=== PATIENT | male | born 1980 ===

== ENCOUNTER 2024-08-22 06:10 | Day surgery (SDC) | payer OTHER, SELFPAY ==
[2024-08-06 11:11] LABS: Hematocrit 41.1 % (39.0-52.0); Hemoglobin 14.7 g/dL (13.0-18.0); Mean Corp Hgb Conc. 35.8 g/dL (33.0-37.0); Mean Corpuscular Hgb 32.7 pg (27.0-31.0); Mean Corpuscular Volume 91.5 fL (80.0-94.0); Platelet Count 248 10^3/uL (130-400); Red Blood Cell Count 4.49 10^6/uL (4.70-6.10); Red Cell Dist. Width 11.9 % (11.5-14.5); White Blood Cell Count 6.1 10^3/uL (4.8-10.8)
[2024-08-06 11:58] LABS: ALT (SGPT) 53 U/L (0-50); AST (SGOT) 30 U/L (17-59); Albumin 4.8 g/dl (3.5-5.0); Alkaline Phosphatase 64 U/L (38-126); Blood Urea Nitrogen 12 mg/dl (9-20); Calcium 9.7 mg/dl (8.4-10.2); Carbon Dioxide 26 mmol/L (22-30); Chloride 108 mmol/L (98-107); Glucose 94 mg/dl (70-99); Sodium 143 mmol/L (135-145); Total Bilirubin 0.9 mg/dl (0.2-1.3); eGFR > 60.00
[2024-08-06 13:24] VITALS: BMI 28.0
[2024-08-22] VITALS (15 sets, daily range): BP systolic 130–154; BP diastolic 78–101; BMI 28.0
[2024-08-22] MEDS: NORMOSOL-R/PLASMALYTE-A 1000 IV (08:13)
[2024-08-22] MEDS: TYLENOL 1000 MG PO (08:13)
--- NOTE | 2024-08-22 08:41 | W.SUR.PREOP ---
Pre-Operative Surgical Note
-
I have examined this patient prior to the performance of the scheduled procedure.
The patient's condition is unchanged from the time of the current History and
Physical and the patient is able to undergo the scheduled procedure.
--- NOTE | 2024-08-22 10:58 | W.IMMPOSTOP ---
Surgical Immed Post Op Note
-
Primary Surgeon: Jason Choi MD
Assisting Surgeon: None
Pre-op Diagnosis: Biliary colic
Post-op Diagnosis: Chronic cholecystitis, bile duct leak (duct of Luschka)
Procedure Performed:
1. Laparoscopic cholecystectomy with cholangiogram
2. Laparoscopic repair of a bile duct (53548)
Anesthesia Type: General
Specimen / Cultures: Gallbladder and contents
Estimated Blood Loss: 23 cc
Complications: None
Operative Findings: Chronically inflamed gallbladder and cystic triangle. Critical view of safety obtained prior to a cholangiogram which demonstrated normal biliary anatomy. Duct ligated with a clip followed by a 0 PDS Endoloop. While removing
the gallbladder off of the liver which was chronically inflamed/fused together a duct of Luschka was encountered with visible bile coming from the fossa. This was repaired using a swepcy-bn-joukg 4-0 PDS suture with good effect. This was
reinforced with Tisseel spray. A 19 D[place]hi round Elton drain was then introduced through the right lateralmost port and passed across our field and secured at the skin with a 2-0 nylon suture.
POST OP PLAN:
Imaging: None
Labs: Routine AM
Diet: Advance to Regular as tolerated
Analgesia: Tylenol 650mg q6 Jaxon, Leeann 5mg q6 PRN, Dilaudid 0.5mg q2h PRN
Neuro/vascular checks: q4h
AC/AP: Hold Therapeutic AC, Ok for DVT PPx
Activity: Ad Adeola
Wound/Incisions/Drains: Routine, GABY to bulb suction
Abx: None
Dispo: RNF, anticipate DC home tomorrow with the drain for at least 1 week. updated over the phone.
--- NOTE | 2024-08-22 11:13 | OR.RPT ---
Operative Report
Operative Report
Patient Name: Jorge Braun
: 1980
Date of Operation: 08/22/2024
Preoperative Diagnosis: Biliary colic
Postoperative Diagnosis: Chronic cholecystitis, bile duct leak
Procedure(s):
1. Laparoscopic Cholecystectomy with Cholangiogram
2. Laparoscopic suture repair of a bile duct (74809)
Surgeon(s):
Dr. Choi
[employer] Founder(s):
EVANGELINA Farmer
Anesthesia: General
Estimated Blood Loss: 23 cc
Urine Output: None
Drains/Lines/Implants: 19 Macedonian round Elton drain introduced through the right lateral port across the gallbladder fossa and secured to the skin with a 2-0 nylon suture.
Specimens:
1. Gallbladder and contents
HPI/Surgical Indications:
This is a 43-year-old male who presented to my office with a longstanding history of postprandial right upper quadrant pain. Exam, labs and imaging are consistent with biliary colic versus chronic cholecystitis. Risks/Benefits/Alternatives were
discussed at length, and the patient agreed to proceed with surgery.
Operative Findings: Chronically inflamed gallbladder and cystic triangle. Critical view of safety obtained prior to a cholangiogram which demonstrated normal biliary anatomy. Duct ligated with a clip followed by a 0 PDS Endoloop. While removing
the gallbladder off of the liver which was chronically inflamed/fused together a duct of Luschka was encountered with visible bile coming from the fossa. This was repaired using a bifibh-xx-jnxtb 4-0 PDS suture with good effect. This was
reinforced with Tisseel spray. A 19 Macedonian round Elton drain was then introduced through the right lateralmost port and passed across our field and secured at the skin with a 2-0 nylon suture.
Procedure Description:
The patient was brought to the Operating Room and placed in the supine position with one arm tucked. Following uneventful induction of general endotracheal anesthesia, an orogastric tube was placed. The abdomen was prepped and draped in the usual
sterile fashion. A timeout was performed confirming the procedure, consent, and that IV antibiotics were infused and sequential compression devices were confirmed to be on. The abdomen was entered using an infraumbilical open Juani technique with
a 12 mm balloon-tipped trocar. Pneumoperitoneum to 15 mmHg pressure was obtained without difficulty and we confirmed that no injury had occurred during our entry. The patient was positioned in reverse Trendelenberg and rotated with the right side
up slightly. Three (3) 5mm trocars were then placed along the right subcostal margin. The gallbladder was noted to be chronically inflamed with thickened wall and adhesions to the periduodenal fat which were carefully lysed with electrocautery and
blunt dissection. The cystic triangle was also chronically inflamed but we were able to obtain a critical view of safety. The cystic artery was identified and divided. A more robust posterior cystic artery was also identified and divided between
2 clips. A clip was placed at the cystic duct/gallbladder junction and A ductotomy was made. Dark bile was milked out of the duct anatomy but no stones were identified here. A cholangiocatheter on an Prince clamp was inserted into the cystic duct.
A C-arm was draped and brought into the field. An intra-operative cholangiogram was performed and was noted to have:
No filling defects in the biliary tree
No significant biliary dilation
Brisk flow of contrast into the duodenum
Normal biliary anatomy
The catheter was then removed and the cystic duct was controlled with a clip followed by 0 PDS Endoloop. After ensuring both the artery and duct were divided, the gallbladder was freed from the liver using electrocautery. About midway up the
gallbladder fossa a duct of Luschka injury was identified with white tinge bile emanating from the surface. This was repaired with a 4-0 PDS pwnecq-ki-neqls suture with good control of the leak. This was then reinforced with Tisseel spray.
The gallbladder bed was inspected and excellent hemostasis was obtained. A 19 Macedonian round Elton drain was introduced through the right lateralmost port and passed across the gallbladder fossa and secured in the skin with a 2-0 nylon suture. The
gallbladder was extracted through the 12 mm trocar site using an endocatch bag. The abdomen was again irrigated and excellent hemostasis was assured. All remaining trocars were then removed and the pneumoperitoneum was evacuated. The 12 mm trocar
site which had to be enlarged slightly was closed using a running 0 PDS suture. All trocar sites were closed at the skin level using 4-0 Monocryl followed by Dermabond. Overall, the patient tolerated the procedure well and was taken to the
Recovery Room postoperatively in stable condition.
I was the attending physician and performed the procedure with assistance of the PA above. The assistance of EVANGELINA Farmer was required due to the complexity of the procedure. During the procedure Lorna assisted with retraction, resection, and
closure of the wound. During the procedure Lorna also assisted with port placement, instrument and needle exchanges, and closure of the wound. I was present for all portions of the case, excluding skin closure.
Jason Choi MD
[2024-08-22] MEDS: SUBLIMAZE 25 MCG IV ×3 (11:38→12:44)
[2024-08-22] MEDS: TYLENOL 650 MG PO ×3 (15:31→23:00)
[2024-08-22] MEDS: LOVENOX 40 MG SC (20:08)
[2024-08-22] MEDS: DILAUDID 0.5 MG IV (21:53)
[2024-08-23] MEDS: TYLENOL 650 MG PO ×3 (03:20→11:28)
[2024-08-23 03:22] VITALS: BP 130/82
[2024-08-23 06:27] LABS: % Basophils 0.1 % (0-2); % Eosinophils 0.1 % (0-6); % Immature Granulocytes 0.4 % (0-0.5); % Lymphocytes 9.5 % (20.5-51.1); % Monocytes 7.4 % (1.7-9.3); % Neutrophils 82.5 % (42.2-75.2); Absolute Immature Granulocytes 0.1 10^3/uL (0-0.05); Absolute Lymphocytes 1.2 10^3/uL (1.2-3.4); Absolute Neutrophils 10.8 10^3/uL (1.4-6.5); Hematocrit 38.3 % (39.0-52.0); Hemoglobin 13.9 g/dL (13.0-18.0); Mean Corp Hgb Conc. 36.3 g/dL (33.0-37.0); Mean Corpuscular Hgb 32.9 pg (27.0-31.0); Mean Corpuscular Volume 90.5 fL (80.0-94.0); Mean Platelet Volume 8.7 fL (7.4-10.4); Nucleated Red Blood Cells % 0 % (-); Platelet Count 291 10^3/uL (130-400); Red Blood Cell Count 4.23 10^6/uL (4.70-6.10); White Blood Cell Count 13.1 10^3/uL (4.8-10.8)
[2024-08-23 06:50] LABS: ALT (SGPT) 113 U/L (0-50); AST (SGOT) 58 U/L (17-59); Albumin 4.5 g/dl (3.5-5.0); Alkaline Phosphatase 67 U/L (38-126); Blood Urea Nitrogen 12 mg/dl (9-20); Calcium 9.6 mg/dl (8.4-10.2); Carbon Dioxide 25 mmol/L (22-30); Chloride 107 mmol/L (98-107); Estimated Creatinine Clearance > 125 ml/min; Glucose 130 mg/dl (70-99); Potassium 4.8 mmol/L (3.5-5.1); Sodium 138 mmol/L (135-145); Total Bilirubin 1.2 mg/dl (0.2-1.3); Total Protein 7.4 g/dl (6.3-8.2); eGFR > 60.00
[2024-08-23 07:20] VITALS: BP 134/80
[2024-08-23 11:10] VITALS: BP 148/93
--- NOTE | 2024-08-23 11:14 | CM ---
CM following re: discharge planning.
Reviewed pt's chart, met with pt.
Pt is a 43 year old male, admitted with primary dx of POD#1 Laparoscopic Cholecystectomy with Cholangiogram.
Pt reports he lives with spouse 2SH, 2 steps to enter, has no children. 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
Discharge order noted.
Pt is aware, expressed his agreement and he stated his spouse will transport home. Pt is aware that VN services for drain care recommended, pt declined an offer and he stated his was trained yesterday and he will not need after care VN services.
PCP: Nini Mata
Pharmacy: [facility]
D/c plan: home with spouse support and care for drain. Spouse to transport.
--- NOTE | 2024-08-23 11:36 | W.PN.GS2 ---
Addendum entered and electronically signed by Jose Ronquillo MD 08/23/24 12:40:
I saw and examined the patient.
The resident's note was reviewed and I agree with the note with the following additions/corrections.
Comment: Doing well POD1, drain ss, shauna PO, pain controlled, ambulating, voiding. OK for DC home with drain.
Original Note:
Today's Communication / Plan
-
Discharge home with drain
Assessment / Plan
-
This is a 43-year-old male who had laparoscopic cholecystectomy for biliary colic yesterday
Postop day 1
Patient feels fine, had a good sleep
Rates the pain 5/10, Tylenol helpful in relieving pain
Passing urine, passing gas, moving around in the room
Tolerating diet
Review of labs,
Mild leukocytosis
table hemoglobin and hematocrit
Plan to discharge today with drain
Optimize pain management
Follow-up on outpatient basis
Subjective Data
-
Date of Service: August 23, 2024
No active issues, tolerating low residue diet well, urinating fine, walking around in the room, passing gas
Objective Data
-
Intake and Output
08/22/24 08/23/24 08/24/24
06:59 06:59 06:59
Intake Total 990 / 990
Output Total
Balance 965 / 965
Intake:
Oral fluids 840 / 840
IV fluids (Total) 150 / 150
normosol 150 / 150
Output:
Drain Output (Total)
Right Lower Abdomen Nguyễn-
Lau
Other:
Number of approximated MODERATE 1
amounts of urine
Vital Signs
Temp Pulse Resp BP Pulse Ox
98.4 F 79 16 134/80 96
08/23/24 07:20 08/23/24 07:20 08/23/24 07:20 08/23/24 07:20 08/23/24 07:20
Lab Results
08/23/24 06:01
08/23/24 06:01
Calcium 9.6 mg/dl (8.4-10.2) 08/23/24 06:
Total Bilirubin 1.2 mg/dl (0.2-1.3) 08/23/24 06:
AST 58 U/L (17-59) 08/23/24 06:
ALT 113 U/L (0-50) H 08/23/24 06:
Alkaline Phosphatase 67 U/L (38-126) 08/23/24 06:01
Total Protein 7.4 g/dl (6.3-8.2) 08/23/24 06:
Albumin 4.5 g/dl (3.5-5.0) 08/23/24 06:01
Physical Exam
-
No apparent distress, anicteric, moist mucous membrane
Abdomen soft, tender, normal bowel sounds, drain output 25 mL reddish in color
Clear to auscultation bilaterally, no wheezes rales or rhonchi
Patient has a stout catheter: No
Patient has a central line: No
== END 2024-08-23 12:00 | disposition home or self-care (01) ==
LOC: SDS 06:10
PROVIDERS: ATTENDING PHYSICIAN Surgery; FAMILY PHYSICIAN Nurse Practitioner Family
DX: K80.10 Calculus of gallbladder with chronic cholecystitis without obstruction (principal)
CPT/HCPCS: 47563; 88304; 36415; 74300; 76000; 80053; 85025; 85027; 93005; A4300; C9250